=== PATIENT | female | born 2000 | race Caucasian/White ===

== ENCOUNTER 2022-02-14 21:35 | Emergency (ER) | payer OTHER ==
[~2022-02-14] VITALS: Ht 170.2 cm; Wt 109.0 kg
[2022-02-14 21:40] VITALS: BP 149/84
[2022-02-15] MEDS ORDERED: MUPI22OI2 TP (00:55)
== END 2022-02-15 01:15 | disposition home or self-care (01) ==
LOC: ER 21:35
DX: L03.011 Cellulitis of right finger (principal)
CPT/HCPCS: 81025; 99282; 99283